=== PATIENT | male | born 1940 | race Native Hawaiian/Other Pacific Islander ===

== ENCOUNTER 2016-04-06 07:28 | Outpatient (CLI) | payer OTHER ==
[2016-04-06] MEDS ORDERED: METF500T PO (08:42)
[2016-04-06] MEDS ORDERED: HYZAAR1 TA2 PO (08:42)
[2016-04-06] MEDS ORDERED: SIMV40TA57 PO (08:43)
[2016-04-06] MEDS ORDERED: GLIM4TAB PO (08:43)
[2016-04-06] MEDS ORDERED: ZESTRIL40 MG OR (08:43)
[2016-04-06] MEDS ORDERED: LISI5TAB10 PO (08:44)
== END 2016-04-06 07:39 | disposition short-term general hospital (02) ==
LOC: AMB 07:28
DX: R55 Syncope and collapse (principal); R06.02 Shortness of breath; R42 Dizziness and giddiness
CPT/HCPCS: A0425; A0427

== ENCOUNTER 2016-04-06 07:39 | Observation (INO) | payer OTHER ==
[~2016-04-06] VITALS: Ht 172.7 cm; Wt 84.0 kg
[2016-04-06 07:55] VITALS: BP 159/92; TEMP 98
[2016-04-06 08:00] LABS: PLATELET COUNT 196 K/uL (142-355)
[2016-04-06 08:09] LABS: POTASSIUM 3.5 mmol/L (3.6-5.2)
[2016-04-06] MEDS ORDERED: METF500T PO (08:42)
[2016-04-06] MEDS ORDERED: HYZAAR1 TA2 PO (08:42)
[2016-04-06] MEDS ORDERED: SIMV40TA57 PO (08:43)
[2016-04-06] MEDS ORDERED: ZESTRIL40 MG OR (08:43)
[2016-04-06] MEDS ORDERED: GLIM4TAB PO (08:43)
[2016-04-06] MEDS ORDERED: LISI5TAB10 PO (08:44)
[2016-04-06 15:18] VITALS: BP 142/92; TEMP 97.4; Ht 172.7 cm; Wt 84.0 kg
[2016-04-06 16:00] VITALS: BP 144/93; TEMP 97.7
[2016-04-06 20:00] VITALS: BP 140/84; TEMP 97.7
[2016-04-07] VITALS: BP 137/81; TEMP 97.8
[2016-04-07 04:00] VITALS: BP 116/83; TEMP 97.7
[2016-04-07 05:41] LABS: PLATELET COUNT 180 K/uL (142-355)
[2016-04-07 06:05] LABS: POTASSIUM 3.1 mmol/L (3.6-5.2)
[2016-04-07 08:00] VITALS: BP 144/99; TEMP 97.6
[2016-04-07 12:00] VITALS: BP 147/96; TEMP 97.6
[2016-04-07 16:00] VITALS: BP 140/77; TEMP 98
[2016-04-07 20:00] VITALS: BP 117/81; TEMP 97.5
--- NOTE | 2016-04-07 23:50 | NUR ---
PT CAME TO NURSES STATION STATING HE WAS RECEIVING TOO MUCH MEDICINE, ASKED WHAT HE NEEDED TO DO TO LEAVE. WHEN AMA PAPERWORK TAKEN TO ROOM, PT HAD REMOVED OWN IV. PT SIGNED AMA. ASKED PT IF HE HAD A SHIRT SO HE COULD LEAVE HOSPITAL GOWN. PT STATED NO. PT STATED THAT HE JUST DIDN'T FEEL RIGHT HERE. PT AMBULATORY AND LEFT UNIT.
== END 2016-04-07 23:45 | disposition left against medical advice (07) ==
LOC: ED 07:39 → MED/SURG 11:00
PROVIDERS: Emergency Medicine; ADMIT Specialist
DX: R09.02 Hypoxemia (principal); R06.09 Other forms of dyspnea; E11.42 Type 2 diabetes mellitus with diabetic polyneuropathy
CPT/HCPCS: 36415; 36600; 80053; 82550; 82805; 82948; 83036; 83880; 84484; 85027; 85379; 85610; 85730; 93005; 93306; 96365; 96366; 96375; 99220; 99284; A9540; A9567; G0378; J1644

== ENCOUNTER 2016-04-10 19:49 | Outpatient (CLI) | payer OTHER ==
[~2016-04-10 19:49] MED LIST: GLIM4TAB PO; HYZAAR1 TA2 PO; LISI5TAB10 PO; METF500T PO; SIMV40TA57 PO; ZESTRIL40 MG OR
== END 2016-04-10 19:59 | disposition short-term general hospital (02) ==
LOC: AMB 19:49
DX: R06.09 Other forms of dyspnea (principal)
CPT/HCPCS: A0425; A0427

== ENCOUNTER 2016-04-10 20:07 | Inpatient (IN) | payer OTHER ==
[~2016-04-10] VITALS: Ht 177.8 cm; Wt 89.4 kg
[2016-04-10 20:22] VITALS: BP 129/82; TEMP 98.1
[2016-04-10 20:34] LABS: PLATELET COUNT 168 K/uL (142-355)
[2016-04-10 20:40] LABS: POTASSIUM 3.3 mmol/L (3.6-5.2)
[2016-04-10 23:00] VITALS: BP 134/90
[2016-04-10 23:17] VITALS: BP 142/93; TEMP 98; Ht 177.8 cm; Wt 89.4 kg
[2016-04-11] VITALS (23 sets, daily range): BP systolic 11–162; BP diastolic 72–106; TEMP 97–98.4
[2016-04-11 05:26] LABS: PLATELET COUNT 166 K/uL (142-355)
[2016-04-11 05:45] LABS: POTASSIUM 3.9 mmol/L (3.6-5.2)
[2016-04-12] VITALS (10 sets, daily range): BP systolic 133–150; BP diastolic 88–101; TEMP 97–98
[2016-04-12 06:41] LABS: PLATELET COUNT 188 K/uL (142-355)
[2016-04-12 07:10] LABS: POTASSIUM 3.6 mmol/L (3.6-5.2)
== END 2016-04-12 15:20 | disposition home or self-care (01) | DRG 192 ==
LOC: ED 20:07 → ICU 22:05
PROVIDERS: Emergency Medicine
DX: J44.1 Chronic obstructive pulmonary disease with (acute) exacerbation (principal); E11.42 Type 2 diabetes mellitus with diabetic polyneuropathy; R09.02 Hypoxemia
CPT/HCPCS: 36415; 80053; 81000; 82550; 82962; 84484; 85027; 93005; 94760; 96372; 96374; 99285; J1650; J2930

== ENCOUNTER 2016-04-16 07:40 | Outpatient (CLI) | payer OTHER | END 2016-04-16 07:53 | disposition short-term general hospital (02) | LOC: AMB 07:40 | DX: I46.9 Cardiac arrest, cause unspecified (principal) | CPT/HCPCS: A0425; A0427 ==

== ENCOUNTER 2016-04-16 07:56 | Emergency (ER) | payer OTHER ==
[~2016-04-16] VITALS: Ht 175.3 cm; Wt 84.4 kg
== END 2016-04-16 09:40 | disposition expired ==
LOC: ED 07:56
DX: I46.9 Cardiac arrest, cause unspecified (principal)
CPT/HCPCS: 92950; 96374; 96375; 96376; 99291; J0171; J0461